=== PATIENT | male | born 1945 | race Caucasian/White ===

== ENCOUNTER → 2020-01-05 | Outpatient (CLI) | payer MEDICARE ==
--- NOTE | 2020-01-05 13:51 | Diagnostic Imaging Report ---
EXAMINATION: CHEST 2 VIEWS INDICATION: Shortness of breath COMPARISON: None FINDINGS: LINES/TUBES:None LUNGS:The lungs are well-inflated. No focal consolidation or pulmonary edema. Focal opacity at the right lung base may represent superimposed vasculature or underlying pulmonary nodule. PLEURA:No pleural effusion or pneumothorax. MEDIASTINUM:The cardiomediastinal silhouette appears normal in size and shape. Atherosclerotic calcifications of the thoracic aorta. BONES/SOFT TISSUES:No acute osseous injury. ABDOMEN:No free air under the diaphragm. IMPRESSION: No focal pneumonia or pulmonary edema. Focal opacity at the right lung base may represent superimposed vasculature versus underlying pulmonary nodule. Chest CT can be considered on a nonurgent basis for further evaluation. Signed by: Pedro Zambrano MD on 01/05/2020 1:47 PM
== END ==
LOC: RAD 13:15
PROVIDERS: ATTEND Internal Medicine
DX: R06.02 Shortness of breath (principal)
CPT/HCPCS: 71046

== ENCOUNTER → 2020-01-27 | Outpatient (CLI) | payer MEDICARE ==
[~2020-01-27] MED LIST: IOPAMIDOL 370 MG/ML 200 ML INFUS..BTL INJ ONE; SODIUM CHLORIDE 0.9% 50ML 50 ML ONE
[2020-01-27 14:46] LABS: BLOOD UREA NITROGEN 14 mg/dL (7-26); BUN/CREATININE RATIO 13 (6-25); CREATININE, SERUM 1.08 mg/dL (0.72-1.25); EST GLOMERULAR FILTRATION RATE > 60 ML/MIN (60-)
--- NOTE | 2020-01-27 15:20 | Diagnostic Imaging Report ---
EXAM: CT Chest WITH intravenous contrast 01/27/2020 3:02 PM INDICATION: Pulmonary nodule, shortness of breath COMPARISON: Chest radiograph 01/05/2020 TECHNIQUE: Chest was scanned utilizing a multidetector helical scanner from the lung apex through the level of the adrenal glands after administration of IV contrast. Coronal and sagittal reformations were obtained. Routine protocol was performed. IV CONTRAST: 100mL Isovue 370 RADIATION DOSE: Total DLP: 523 mGy*cm. Dose modulation, iterative reconstruction, and/or weight based adjustment of the mA/kV was utilized to reduce the radiation dose to as low as reasonably achievable. COMPLICATIONS: None FINDINGS: LINES/ TUBES: None. LUNGS AND AIRWAYS: The central airways are patent. No focal consolidation or pulmonary edema. No suspicious pulmonary nodules. Specifically, the findings on the prior radiograph of 01/05/2020 at the right lower lung likely represented superimposed prominent vasculature. PLEURA: The pleural spaces are clear. HEART AND MEDIASTINUM: The thyroid gland is normal. No mediastinal, hilar or axillary lymphadenopathy. The heart is normal in size.. There is no pericardial effusion. Minimal calcified and noncalcified atherosclerotic plaque of the thoracic aorta. No central pulmonary embolism. UPPER ABDOMEN: Scattered hypodense foci in the liver, likely cysts. Diffuse hepatic steatosis. Otherwise, no acute findings in the upper abdomen. BONES: No acute osseous injury. No suspicious lytic or blastic lesions. SOFT TISSUES: Unremarkable. IMPRESSION: No focal consolidation or pulmonary edema. No suspicious pulmonary nodules. The findings on the prior radiograph of 01/05/2020 likely correspond with superimposed right lower lung vasculature. Signed by: Pedro Zambrano MD on 01/27/2020 3:17 PM
== END ==
LOC: CT 13:51
PROVIDERS: ATTEND Internal Medicine
DX: R06.02 Shortness of breath (principal)
CPT/HCPCS: 36415; 71260; 82565; 84520; Q9967

== ENCOUNTER → 2022-02-02 | Outpatient (CLI) | payer MEDICARE | LOC: RAD 10:31 | PROVIDERS: ATTEND Internal Medicine | DX: R06.02 Shortness of breath (principal) | CPT/HCPCS: 71046 ==